=== PATIENT | male | born 1955 | race Caucasian/White ===

== ENCOUNTER 2021-08-22 14:53 | Emergency (ER) | payer SELFPAY | END 2021-08-22 17:19 | disposition left against medical advice (07) | PROVIDERS: Emergency Provider Emergency Medicine | DX: S61.219A Laceration without foreign body of unspecified finger without damage to nail, initial encounter (principal); W45.8XXA Other foreign body or object entering through skin, initial encounter; Y93.9 Activity, unspecified; Y92.9 Unspecified place or not applicable; Y99.0 Civilian activity done for income or pay ==

== ENCOUNTER 2023-06-23 11:24 | Outpatient (AMB) | payer OTHER, SELFPAY ==
--- NOTE | 2023-06-23 12:39 | MHC.OFFWIV ---
Intake Vital Signs 06/23/23 12:46 Height 5 ft 9 in Weight 149 lb 4 oz BMI 22.0 BP 138/72 Blood Pressure Location Lt brachial Position Sitting Pulse 90 Pulse Source Pulse Oximeter Temp 97.9 F Temp Source Temporal Artery Scan Pulse Oximetry (%) 98 Oxygen Delivery Method Room Air Intake Visit Reasons: EP sciatic/Lft thigh pain Intake Note: Pt is here c/o left upper thigh pain Patient Tobacco Use Status: Never used Tobacco Allergies No Known Allergies Allergy (Verified 06/23/23 12:47) Medication List - Last Reconciled 06/23/23 by Rashawn Hamlin MD No Known Home Meds Do you need a note to return to daycare/school/sports/work: No HPI EP sciatic/Lft thigh pain HPI Details Patient presents to the office for a sick visit. Complaining of lower back pain for the past week. No history of fall or trauma prior to the onset of symptoms. No urinary incontinence. No fevers or chills. Pain is worse on bending forwards or sideways. Relieve done sitting down. Pain is radiating into the gluteal area. PFSH Social History Patient Tobacco Use Status: Never used Tobacco Physical Exam Vital Signs: Last Vital Signs Temp 97.9 F 06/23/23 12:46 Pulse 90 06/23/23 12:46 BP 138/72 06/23/23 12:46 Pulse Ox 98 06/23/23 12:46 Oxygen Delivery Method Room Air 06/23/23 12:46 BMI result Body Mass Index 22.0 General: Yes no CVA tenderness Back/Spine/Pelvis Other: No spinal tenderness. Straight leg raising test was negative. Back: no CVA tenderness Assessment & Plan Assessment & Plan (1) Low back pain: Code(s): M54.50 - Low back pain, unspecified Plan: Meloxicam and cyclobenzaprine called in. Patient was advised rest. Note for work if necessary provided. Once pain symptoms subside, patient should start physical therapy. If symptoms worsen to follow-up here. Coding Level of Care Code Est Pt Level 3 (30658) Diagnoses Low back pain M54.50
[2023-06-23 12:46] VITALS: BP 138/72; PULSE 90; TEMP 36.6; O2SAT 98; BMI 22.0
== END 2023-06-23 13:08 | disposition home or self-care (01) ==
PROVIDERS: Visit Provider Internal Medicine
DX: M54.50 Low back pain, unspecified (principal)
CPT/HCPCS: 99213

== ENCOUNTER 2023-08-08 09:32 | Outpatient (AMB) | payer OTHER, SELFPAY ==
[2023-08-08 12:25] VITALS: BP 150/82; PULSE 89; TEMP 36.8; O2SAT 97; BMI 21.9
--- NOTE | 2023-08-08 12:25 | MHC.OFFWIV ---
Intake Vital Signs 08/08/23 12:25 Height 5 ft 9 in Weight 148 lb BMI 21.9 BP 150/82 H Blood Pressure Location Rt brachial Position Sitting Pulse 89 Pulse Source Pulse Oximeter Temp 98.2 F Temp Source Oral Pulse Oximetry (%) 97 Oxygen Delivery Method Room Air Intake Visit Reasons: EST/righ side hip/back pain (no car) Intake Note: Pt is here today c/o Rt side hip pain and swolleness and Rt lower back into Rt buttock Patient Tobacco Use Status: Never used Tobacco Allergies No Known Allergies Allergy (Verified 08/08/23 12:26) HPI HPI Comments History of Present Illness Details This is a 68-year-old male with no stated past medical history presenting for evaluation of left-sided low back pain that he has had intermittently since May as well as swelling of his left thigh that he has also had since May. Patient describes his back pain as an achy sensation that does not radiate. Patient was seen in urgent care and prescribed meloxicam and cyclobenzaprine for his low back pain which he did not find helpful. Patient denies any injury or trauma preceding the onset of his back pain and denies any injury to his left thigh. Patient states that his left thigh feels ?tight? and continues to grow larger at this time. [facility] Social History Patient Tobacco Use Status: Never used Tobacco Review of Systems Const All systems reviewed & are unremarkable except as noted in HPI and below Denies chills, Denies fatigue and Denies fever(s) Musc Details: left low back pain, swelling left thigh Skin/Breast Reports system reviewed and no additional complaints, except as documented Endo Denies fatigue Physical Exam Vital Signs: Last Vital Signs Temp 98.2 F 08/08/23 12:25 Pulse 89 08/08/23 12:25 BP 150/82 H 08/08/23 12:25 Pulse Ox 97 08/08/23 12:25 Oxygen Delivery Method Room Air 08/08/23 12:25 BMI result Body Mass Index 21.9 Const General: cooperative, healthy appearing, comfortable, no acute distress and well developed; No ill appearing Nutritional Appearance: average body habitus Orientation/consciousness: patient oriented x3 Limitations: no limitations Cardio Rate: regular rate Rhythm: regular rhythm General: Yes no CVA tenderness Back/Spine/Pelvis Back: no CVA tenderness Thoracic/Lumbar Spine: thoracic and lumbar spine normal to inspection, thoraco-lumbar ROM normal, straight leg raise negative bilaterally, paraspinal muscle tenderness (left; no sciatic notch tenderness, no CVAT) and No straight leg raise positive Sacroiliac joints: bilaterally nontender Sacrum: no ecchymosis, no swelling and no tenderness Skin General skin exam: no rashes or lesions noted Neuro General: patient oriented x3 Extrem Other: left proximal lower extremity significantly edematous anteriorly, tense and non.tender to palpation, no erythema, pitting edema, induration or fluctuance however the circumference of this limb is significantly greater than the right femur. Left lower extremity: abnormal to inspection Assessment & Plan Assessment & Plan (1) Lower leg edema: Code(s): R60.0 - Localized edema Plan: Outpatient US will be obtained to determine etiology of left thigh swelling; has been present and evolving x 3 months, no evidence of cellulitis. (2) Lumbar strain: Code(s): S39.012A - Strain of muscle, fascia and tendon of lower back, initial encounter Plan: Patient will be discharged home with an anti-inflammatory and muscle relaxant. Patient is encouraged to follow-up with his primary care provider or return to urgent care for any worsening symptoms. Medications: New methocarbamol 1,000 mg PO TID 20 tabs 0RF naproxen (Naprosyn) 500 mg PO BID 20 tabs 0RF Coding Level of Care Code New Pt Level 4 (08063) Diagnoses Lower leg edema R60.0 Lumbar strain S39.012A Time Spent (min) 30
== END 2023-08-08 13:16 | disposition home or self-care (01) ==
PROVIDERS: Visit Provider Physician Assistant
DX: R60.0 Localized edema (principal); S39.012A Strain of muscle, fascia and tendon of lower back, initial encounter
CPT/HCPCS: 99051; 99204

== ENCOUNTER 2023-08-28 09:53 | Outpatient (AMB) | payer OTHER, SELFPAY ==
[2023-08-28 10:59] VITALS: BP 162/94; PULSE 88; TEMP 36.6; O2SAT 96; BMI 22.0
--- NOTE | 2023-08-28 10:59 | MHC.OFFWIV ---
Intake Vital Signs 08/28/23 10:59 Height 5 ft 9 in Weight 149 lb BMI 22.0 BP 162/94 H Blood Pressure Location Lt brachial Position Sitting Pulse 88 Pulse Source Pulse Oximeter Temp 97.8 F Temp Source Oral Pulse Oximetry (%) 96 Oxygen Delivery Method Room Air Intake Visit Reasons: EST/left leg pain (lobby no car) Intake Note: Pt is here today for Lt leg pain, state its been like this since june Patient Tobacco Use Status: Never used Tobacco Allergies No Known Allergies Allergy (Verified 08/28/23 10:59) HPI HPI Comments History of Present Illness Details This is a 68-year-old male who presented to the walk-in clinic today complaining of persistent left leg pain and swelling since May 2023. Patient was initially seen here on June 23, 2023 and he was diagnosed with a muscular sprain/strain and he was given naproxen and cyclobenzaprine without relief. He was evaluated on August 08, 2023 and he was given meloxicam and methocarbamol without relief. Patient states he was evaluated by a physician acute care certified nursing assistant who recommended an ultrasound; however, the patient was unable to stay for an ultrasound so he did not receive the ultrasound. Patient reports the left leg pain and swelling has persisted despite anti-inflammatories and pain medications. He denies any numbness/paresthesias of his left lower extremity. He denies any pallor of his extremities. [facility] Social History Patient Tobacco Use Status: Never used Tobacco Review of Systems Const All systems reviewed & are unremarkable except as noted in HPI and below Reports no additional complaints Eyes Reports no additional complaints ENT Reports no additional complaints Card Reports no additional complaints Resp Reports no additional complaints GI Reports no additional complaints Reports no additional complaints Musc Reports no additional complaints Skin/Breast Reports system reviewed and no additional complaints, except as documented Neuro Reports no additional complaints Psych Reports no additional complaints Endo Reports no additional complaints Octavio/Lymph Reports no additional complaints Aller/Immun Reports no additional complaints Physical Exam Vital Signs: Last Vital Signs Temp 97.8 F 08/28/23 10:59 Pulse 88 08/28/23 10:59 BP 162/94 H 08/28/23 10:59 Pulse Ox 96 08/28/23 10:59 Oxygen Delivery Method Room Air 08/28/23 10:59 BMI result Body Mass Index 22.0 Const Other: Vital signs reviewed. Constitutional: Non-toxic appearing. No acute distress. Well-developed and well-nourished. HEENT: Normocephalic and atraumatic. Skin: Warm and dry. No rashes or lesions noted. There is no erythema or ecchymosis of the left lower extremity. Neck: Full and painless range of motion. No cervical lymphadenopathy. Cardio: Regular rate. No JVD. 2+ DP/PT pulses bilaterally. Pulmonary: No respiratory distress. No accessory muscle usage. Gastrointestinal: Soft, nontender, and nondistended in all 4 quadrants. Musculoskeletal: There is significant swelling of the patient's left thigh without overlying erythema or ecchymosis. The entire area is indurated. The patient's gait is intact with a slight limp. Neuro: Alert and oriented x4. Cranial nerves 2-12 grossly intact. No focal deficits appreciated. Psych: Normal mood and affect. Assessment & Plan Assessment & Plan (1) Lower leg edema: Code(s): R60.0 - Localized edema Plan: This is a 68-year-old male who presented to the walk-in clinic complaining of persistent left upper leg pain/swelling x3 months. The patient has utilized multiple anti-inflammatories as well as muscle relaxants without relief. On physical examination, there is significant swelling of the patient's left thigh with induration. There is concern for possible large hematoma versus less likely compartment syndrome versus a vein thrombosis. We initially planned on obtaining an ultrasound of the left lower extremity; however, given the significant swelling of the patient's leg I have recommended that the patient proceed directly to the emergency room for further evaluation and management. The patient states that he does not currently have a ride to the emergency room and he declined an ambulance. I explained the risks of compartment syndrome versus DVT so he was made aware that he should proceed directly to the emergency room as soon as possible. The patient states his is coming home from work later this afternoon and he will talk with her about bringing him to the emergency room. I recommended that the patient call an ambulance if he were to develop pallor/paresthesias/pulselessness of his left lower extremity. The patient verbalized his understanding and he understands the risks. Samia Faith APRN, was also present and witnessed our discussion regarding possible risks and reasons for emmergent evaluation. Medications: New prednisone 40 mg (2 x 20 mg) PO DAILY 10 tabs 0RF Coding Level of Care Code Est Pt Level 3 (56556) Diagnoses Lower leg edema R60.0
== END 2023-08-28 11:45 | disposition home or self-care (01) ==
PROVIDERS: Visit Provider Physician Assistant Medical
DX: R60.0 Localized edema (principal)
CPT/HCPCS: 99213

== ENCOUNTER 2023-09-16 10:10 | Outpatient (AMB) | payer OTHER, SELFPAY ==
--- NOTE | 2023-09-16 10:15 | MHC.PC.OV ---
Vital Signs 09/16/23 10:16 Height 5 ft 9 in Weight 148 lb BMI 21.9 BP 132/80 Blood Pressure Location Lt brachial Position Sitting Pulse 82 Pulse Source Pulse Oximeter Pulse Oximetry (%) 98 Intake Visit Reasons: Est care Intake Note: pt is here for establishing care Tack Coverer Required: No Allergies No Known Allergies Allergy (Verified 09/16/23 11:04) Medication List - Last Reconciled 09/16/23 by CHANNING Archer No Known Home Meds Tobacco use date assessed: 09/16/23 Fall risk assessment: No Falls in past year Last assessed Fall Risk: 09/16/23 Dental Screening Dental Screen Date: 09/16/23 Did you have a dental visit in the last 12 months?: Yes Did you have a dental problem in the last 6 months where you did not have access to dental care?: No Was dental information given to patient?: Patient has dentist HPI HPI Comments History of Present Illness Details Patient is a 68-year-old male here to establish care. He was last seen at [facility] emergency room 9 days ago for left thigh pain and swelling. He has had an ongoing issue with his left thigh since May, where he has experienced increasing swelling and pain in the area after raking leaves. Imaging from [facility] emergency room demonstrated a large hematoma, patient had CT scan and ultrasound they were able to rule out DVT. The patient did not want to wait to see the surgeon at [facility] and was discharged home. Patient is following up today. Still having complaints of left thigh swelling and pain. Will order referral to General surgery and will obtain MRI which was suggested by the radiologist who read his CT scan. [facility] Surgical History No pertinent past surgical history Family History Father No problems noted. Mother No problems noted. Social History Patient Tobacco Use Status: Never used Tobacco service: No Current occupational status: unemployed and retired Cognitive needs: No Hearing needs: No Vision needs: No Questionnaire PHQ-9 Over the last 2 weeks, how often have you been bothered by any of the following problems? 44576 - PHQ-9 Billing: Patient declined-do not bill Source: Developed by Drs. Jose G Milligan, Emy Pradhan, Jorge Levine and colleagues, with an educational john from [employer] Thrive Questionnaire Date Thrive assessed: 09/16/23 I am a: Patient What is your living situation today?: I have a steady place to live Within the past 12 months, did the food you bought not last and you didn't have the money to get more?: Never true Within the past 12 months, did you worry whether your food would run out before you got money to buy more?: Never true Do you have trouble paying for medicines?: No Do you have trouble getting transportation to medical appointments?: No Do you have trouble paying your heating and electricity bill?: No Do you have trouble taking care of your child, family member or friend?: No Do you have trouble with day-to-day activities such as bathing, preparing meals, shopping, managing finances, etc.?: No Are you currently unemployed and looking for a job?: No Are you interested in more education?: No Please select the resources that you would like help with: None Currently or been in a relationship where the following occur: no concerns reported THRIVE Score: 0 AMANDA-7 AMB Questionnaire AAMNDA-7 Date AMANDA - 7 assessed: 09/16/23 Source: Developed by Drs. Jose G Milligan, Emy Pradhan, Jorge Levine and colleagues, with an educational john from [employer]. AMANDA-7 Assessment Billing AMANDA-7 Assessment Tool: pt declined-do not bill Review of Systems Const Details: Constitutional : No Weight loss, No Fever, No Chills, No Fatigue, No Malaise Cardiovascular : No Chest Pain, No SOB, No Dyspnea on Exertion, No Orthopnea, No Edema, No Palpitations Respiratory : No Cough, No Sputum, No Wheezing Gastrointestinal : No Nausea, No Vomiting, No Diarrhea, No Constipation, No abdominal Pain, No Hematochezia, No Melena Musculoskeletal : Admits pain in left thigh area, lateral aspect. Skin : No Skin Lesions, No rash Neuro : No Weakness, No Numbness, No Dizziness, No Headache Psych : No Anxiety/Panic, No Depression Heme/Lymph: Large hematoma of left thigh area. Endocrine : No Polyuria, No Polydipsia All other systems reviewed and are negative Physical exam (Primary Care) Vital Signs: Last Vital Signs Pulse 82 09/16/23 10:16 BP 132/80 09/16/23 10:16 Pulse Ox 98 09/16/23 10:16 BMI result Body Mass Index 21.9 Tobacco/Smoking Status: Tobacco use Status Tobacco use date assessed 09/16/23 09/16/23 10:18 Patient Tobacco Use Status Never used Tobacco 09/16/23 10:18 Thrive Assessment: Date of Thrive Assessment Date Thrive assessed 09/16/23 09/16/23 10:24 Currently or been in a relationship where the following occur: no concerns reported Const Other: Appearance: Alert.? Oriented X3.? No acute distress.? Neck: Normal inspection.? Neck supple.? CVS: Normal heart rate and rhythm.? Pulses normal.? Respiratory: No respiratory distress.? Breath sounds normal.? Skin: Skin warm and dry.? Normal skin color.? Normal skin turgor.? Extremities: Lower extremity edema of left thigh. Pain to lateral aspect of thigh. Described as burning. Neuro: Oriented X 3.? No motor deficit.? No sensory deficit. CN 2-12 intact Results Reviewed Results Reviewed: We reviewed results from the [facility] CT scan. Assessment and Plan Assessment & Plan (1) Hematoma: Comment: Patient has known hematoma from previous imaging. Will prescribe Salonpas, cyclobenzaprine to be taken as directed for pain. Patient can also take Tylenol has been educated not to take more than 3000 mg per day. Patient has been educated on signs of worsening symptoms and when to report back to the office or when to present to the emergency room. Patient will get referral to General surgery an MRI. Code(s): T14.8XXA - Other injury of unspecified body region, initial encounter Plan: Take your medications as prescribed. If you were prescribed antibiotics today, it is important that you take your medication to their entirety, do not skip any doses, do not finish them early. Follow-up with your primary care provider this week. Return to the emergency department with new or worsening symptoms. Such as fevers, chills, chest pain, shortness of breath, nausea, vomiting, dizziness, headache, vision changes, lethargy In case of emergency call 911 Plan Annual physical exam in 2 months. Orders: Orders Comprehensive Met. Panel Today Z91.89 - Other specified personal risk factors, not elsewhere classified PSA,Total (Free>4and<10) Today Z12.5 - Encounter for screening for malignant neoplasm of prostate UA CC w/rflx Micro + Cult Today E86.0 - Dehydration MR lower leg LT wo con Today T14.8XXA - Other injury of unspecified body region, initial encounter Complete Blood Count Auto Diff Today Z13.0 - Encounter for screening for diseases of the blood and blood-forming organs and certain disorders involving the immune mechanism Referrals General Surgery Referral T14.8XXA - Other injury of unspecified body region, initial encounter Medications: New lidocaine 4% (Salonpas (lidocaine)) 1 patch topical BID PRN 30 ea 0RF pain cyclobenzaprine 5 mg PO BEDTIME PRN 10 tabs 0RF muscle spasm Coding Level of Care Code Est Pt Level 3 (15296) Diagnoses Hematoma T14.8XXA Time Spent (min) 35
[2023-09-16 10:16] VITALS: BP 132/80; PULSE 82; O2SAT 98; BMI 21.9
== END 2023-09-16 10:59 | disposition home or self-care (01) ==
PROVIDERS: Visit Provider Nurse Practitioner Primary Care
DX: T14.8XXA Other injury of unspecified body region, initial encounter (principal)
CPT/HCPCS: 99214

== ENCOUNTER 2023-09-16 11:00 | Outpatient (REF) | payer OTHER, SELFPAY ==
[2023-09-16 13:21] LABS: MANUAL DIFF FLAG NO
[2023-09-16 13:30] LABS: Basophils Absolute Auto 0.1 X10*3/uL (0.0-0.2); Eosinophils Absolute Auto 0.3 X10*3/uL (0.0-0.4); Hematocrit 40.9 % (42.0-52.0); Hemoglobin 13.8 g/dl (14.0-18.0); Imm Gran Abs Auto 0.02 X10*3/uL (0.00-0.03); Imm Gran Pct Auto 0.2 % (0.0-0.4); Lymphocytes Absolute Auto 1.6 X10*3/uL (1.2-4.9); Lymphocytes Percent Auto 16.6 % (20-40); Mean Corpuscular HGB Conc 33.7 g/dl (31.0-36.0); Mean Corpuscular Hemoglobin 30.7 pg (27.0-33.0); Mean Corpuscular Volume 91.1 fL (80.0-98.0); Monocytes Absolute Auto 1.2 X10*3/uL (0.1-1.2); Monocytes Percent Auto 12.1 % (2-11); Neutrophils Absolute Auto 6.5 x10*3/uL (2.0-8.3); Neutrophils Percent Auto 67.1 % (45-73); Platelet Count 395 X10*3/uL (160-400); Red Blood Count 4.49 X10*6/uL (4.60-5.80); Red Cell Distribution Width 13.9 % (11.0-16.0); White Blood Count 9.7 X10*3/uL (4.8-10.8)
[2023-09-16 13:31] LABS: Appearance Urine Clear; Color Urine Yellow; Glucose Urine UA Negative (Negative); Leukocyte Esterase Urine Negative (Negative); Nitrite Urine Negative (Negative); PH 6.5 (5.0-9.0); Urine Blood Negative (Negative); Urine Ketones Negative (Negative); Urine Protein Negative (Neg-Trace)
[2023-09-16 14:27] LABS: Alanine Aminotransferase 15 U/L (0-40); Albumin Level 4.5 g/dL (3.5-5.0); Alkaline Phosphatase 68 U/L (39-117); Anion Gap 15 (12-20); Aspartate Amino Transferase 20 U/L (5-37); Bilirubin Total 0.2 mg/dL (0.0-1.0); Blood Urea Nitrogen 11 mg/dL (9-16); Calcium 9.9 mg/dL (8.4-10.2); Carbon Dioxide 27 mmol/L (22-29); Chloride 98 mmol/L (96-108); Estimated Glomerular Filt Rate > 60; Glucose Random 106 mg/dL (60-115); Sodium 135 mmol/L (135-145); Total Protein 7.6 g/dL (6.5-8.0)
[2023-09-18 12:04] LABS: Free Prostate Spec Ag 0.8 ng/mL; Percent Free Prostate Spec Ag 15 % (calc) (>25); Prostate Specific Ag Total 5.2 ng/mL (< OR = 4.0)
== END 2023-09-16 11:01 | disposition home or self-care (01) ==
LOC: HO.HMGCLDS 11:00
PROVIDERS: PCP Nurse Practitioner Primary Care; Visit Provider Nurse Practitioner Primary Care
DX: Z12.5 Encounter for screening for malignant neoplasm of prostate (principal); Z13.0 Encounter for screening for diseases of the blood and blood-forming organs and certain disorders involving the immune mechanism; E86.0 Dehydration; Z91.89 Other specified personal risk factors, not elsewhere classified
CPT/HCPCS: 36415; 80053; 81003; 84153; 84154; 85025

== ENCOUNTER 2023-10-12 13:41 | Outpatient (AMB) | payer OTHER, SELFPAY ==
--- NOTE | 2023-10-12 13:43 | A.OFFVIS_ITS ---
Intake Vital Signs 10/12/23 13:49 Height 5 ft 9 in Weight 141 lb BMI 20.8 BP 127/74 Blood Pressure Location Rt brachial Position Sitting Pulse 101 H Intake Visit Reasons: Hematoma~Lt thigh Intake Note: Patient referred by PCP Dr. Villalpando for hematoma on Lt thigh. Patient c/o: swelling and pain since May. Swelling and pain first noticed after raking leaves. Patrol Conductor Required: No Accompanied by: Self / Same As Patient Allergies No Known Allergies Allergy (Verified 10/12/23 13:43) Medication List - Last Reconciled 10/12/23 by Kirill Aldridge MD acetaminophen (Tylenol Extra Strength) 500 mg PO Q6H PRN lidocaine 4% (Salonpas (lidocaine)) 1 patch topical BID PRN HPI HPI Comments History of Present Illness Details Patient presents with his . He has had approximately 5 month history of increased pain and swelling and tightness of his left thigh. He denies any trauma to the area. He is on take any blood thinners. He has never had such symptoms or issues before. Because of progressive symptoms, patient has been seen by variety of providers including walk-in clinics and other healthcare people. He presents here for further evaluation. Chart was reviewed and patient evaluated. Patient had CT and MRI of the thigh PFSH Surgical History No pertinent past surgical history Family History Father No problems noted. Mother No problems noted. Social History (Updated 10/12/23 @ 13:51 by KAISER Augustine) Patient Tobacco Use Status: Former Tobacco user service: No Current occupational status: unemployed and retired Cognitive needs: No Hearing needs: No Vision needs: No Physical Exam Vital Signs: Last Vital Signs Pulse 101 H 10/12/23 13:49 BP 127/74 10/12/23 13:49 BMI result Body Mass Index 20.8 Const Other: Thin male in moderate distress secondary to thigh discomfort. Neck Other: No obvious cervical, periclavicular, axillary or groin adenopathy. GI Other: Abdomen soft, benign Extrem Other: Patient has marked swelling and turgidity of his left thigh in comparison to the right. No overlying skin changes. No erythema. No evidence of any ecchymosis or trauma. Very tender to palpation especially left lateral thigh. Office Procedures FNA Biopsy FNA Biopsy Details: Risks, benefits, alternatives of attempted fine-needle aspiration of this left lateral thigh mass reviewed the patient and included but not limited to bleeding, infection, non diagnosis, numbness, pain, scarring the patient was to proceed. All questions answered. After appropriate positioning, patient underwent Betadine prep and attempted aspiration with 18 gauge needle filled with saline. Some core tissue was retrieved but no hematoma was reached. I think the needle was not long enough to reach the actual pathology. Specimen sent for evaluation. Patient tolerated procedure well. FNA Biopsy 1: [id number] Biopsy, 1st lesion w/o image All charges added?: Procedure code (CPT) selection complete Assessment & Plan Assessment & Plan (1) Mass of soft tissue of thigh: Code(s): M79.89 - Other specified soft tissue disorders Plan: In anticipation that the office FNA is nondiagnostic, the current plan is to arrange for a CT-guided biopsy of the deep left lateral thigh mass and direct further therapy based on these results. This was reviewed with the patient his . They will see me after this study to review the results. All questions answered. Orders: Orders CT biopsy muscle Today M79.89 - Other specified soft tissue disorders Biopsy - Fine needle aspiration Today M79.89 - Other specified soft tissue disorders Medications: New hydrocodone-acetaminophen 5-325 mg Partial Fill upon patient request. 1 tab PO Q4-6H PRN 30 tabs 0RF pain Coding Level of Care Code New Pt Level 5 (73912) Diagnoses Mass of soft tissue of thigh M79.89 CPT Codes FNA Biopsy - FNA Biopsy 1: [id number] Biopsy, 1st lesion w/o image ([id number])
[2023-10-12 13:49] VITALS: BP 127/74; PULSE 101; BMI 20.8
== END 2023-10-12 14:20 | disposition home or self-care (01) ==
PROVIDERS: PCP Nurse Practitioner Primary Care; Referring Provider Nurse Practitioner Primary Care; Visit Provider Surgery
DX: M79.89 Other specified soft tissue disorders (principal)
CPT/HCPCS: 10021; 99204

== ENCOUNTER 2023-10-12 13:41 | Outpatient (REF) | payer OTHER, SELFPAY | END 2023-10-12 13:42 | disposition home or self-care (01) | LOC: HO.LNP 13:41 | PROVIDERS: PCP Nurse Practitioner Primary Care; Referring Provider Nurse Practitioner Primary Care; Visit Provider Surgery | DX: M79.89 Other specified soft tissue disorders (principal); T14.8XXA Other injury of unspecified body region, initial encounter | CPT/HCPCS: 10021; 88304; 88305; 88341; 88342; 88360 ==

== ENCOUNTER 2023-10-20 12:49 | Outpatient (REF) | payer OTHER, SELFPAY ==
--- NOTE | ~2023-10-20 | US_ITS ---
Ultrasound-guided left thigh mass biopsy History: Large left thigh mass Procedure: Ultrasound-guided left thigh mass biopsy Risks and benefits and possible complications were discussed with the patient and consent form was signed. The left thigh was prepped and draped in usual sterile fashion. 1% lidocaine was used for anesthesia. A 17-gauge coaxial needle was inserted through the skin and soft tissues and into the left thigh mass. A total of 5, 18-gauge cores were performed. Permanent ultrasound images were archived. The needle was then removed and a dry sterile dressing was applied. The specimens were placed in formalin and sent to pathology. The patient tolerated the procedure well. There were no immediate complications. This procedure was performed by Tomas Acosta PA-C, and directly supervised by Dr. Elise. US/US biopsy subcutaneous skin Impression: Ultrasound-guided left thigh mass biopsy
== END 2023-10-20 12:50 | disposition home or self-care (01) ==
LOC: HO.US 12:49
PROVIDERS: PCP Nurse Practitioner Primary Care; Visit Provider Surgery
DX: M79.89 Other specified soft tissue disorders (principal)
CPT/HCPCS: 11104; 88305